=== PATIENT | female | born 1975 | race Caucasian/White ===

== ENCOUNTER 2023-03-10 10:37 | Outpatient (REF) | payer OTHER, SELFPAY ==
[2023-03-10 15:00] LABS: HCT 38.7 % (36.0-46.0); HGB 13.4 g/dL (11.2-15.7); MCHC 34.6 % (32.0-36.0); MCV 90 fL (80-95); MPV 10.6 fL (8.0-11.0); Platelet Count 243 10^3/uL (130-400); RBC 4.32 10^6/uL (3.93-5.22); RDW 12.2 % (11.7-14.6); RDW-SD 40.5 fL; WBC 4.62 10^3/uL (4.4-10.8)
[2023-03-10 15:24] LABS: TSH (W/Ref FT4) 3.09 uIU/mL (0.36-3.74)
[2023-03-10 16:03] LABS: Iron 153 ug/dL (50-170); Total Iron Binding Capacity 304 ug/dL (250-450); Transferrin Sat 50 % (15-50)
[2023-03-10 16:26] LABS: Vitamin D 25 Total 16.5 ng/mL (30-100)
[2023-03-11 10:27] LABS: FSH 11.1 mIU/mL (See Note)
== END 2023-03-10 10:38 | disposition home or self-care (01) ==
LOC: NCHCN 10:37
PROVIDERS: Visit Provider Family Medicine
DX: N92.0 Excessive and frequent menstruation with regular cycle (principal); L60.9 Nail disorder, unspecified; E55.9 Vitamin D deficiency, unspecified
CPT/HCPCS: 82306; 85027; 83001; 83540; 83550; 84443

== ENCOUNTER → 2023-03-17 01:57 | Outpatient (CLI) | payer OTHER, SELFPAY ==
--- NOTE | 2023-03-17 12:49 | DI.MAMMO_ITS ---
Exam(s) MAMMO SCREENING EXAM: MAMMO SCREENING CLINICAL HISTORY: SCREENING,Z12.31. TECHNIQUE: Bilateral full field digital CC and MLO mammographic images were obtained with 3D tomosyn thesis and utilizing computer aided detection (CAD). COMPARISON: 2019 through 2021 from [facility][1]. FINDINGS: Masses: No suspicious masses.. Area of nodularity again noted in the subareolar region of the left b reast. Architectural Distortion: None seen. Microcalcifications: No suspicious pleomorphic-type are seen. Skin Thickening/Nipple Retraction: None. IMPRESSION: 1. No significant interval change with no specific features of malignancy noted. 2. Unless there is more urgent need, annual screening mammography is recommended, as per [place] [employer] guidelines. BI-RADS Category 2 - Benign Findings Breast Density - Category D - extremely dense Breast Density Category D: The mammogram demonstrates the patient's breast tissue is dense. Dense yakelin ast tissue is very common and is not abnormal but dense breast tissue can make it harder to find canc er on a mammogram. Also, dense breast tissue may increase their breast cancer risk. This information about the result of the mammogram report was provided to the patient to raise their awareness. Use th is report when you speak with the patient about their risks for breast cancer, which includes their f amily history. At that time, you may recommend for more screening tests (Ultrasound or MRI) as they m ight be useful based on their risk. A negative radiographic report should not delay biopsy if a dominant or clinically suspicious mass is present. Up to ten percent of cancers are not identified on mammography. A negative report may reinforce clinical impression. Adenosis and dense breasts may obscure an underlying neoplasm. False positive reports average 6 to 10%.
== END ==
PROVIDERS: Visit Provider Family Medicine
DX: Z12.31 Encounter for screening mammogram for malignant neoplasm of breast (principal)
CPT/HCPCS: 77063; 77067

== ENCOUNTER 2023-07-24 06:57 | Day surgery (SDC) | payer OTHER, SELFPAY ==
[2023-07-24 07:13] VITALS: BP 117/76; PULSE 57; RESP 16; TEMP 36.8; O2SAT 96
[2023-07-24] MEDS: Lactated Ringers 1,000 ML 80 ML IV (07:31)
--- NOTE | 2023-07-24 07:32 | W.ANESPRE ---
General Info Date of Service Date Performed: 07/24/23 Height: 5 ft 10 in Weight: 75 kg Body Mass Index (BMI): 23.7 Surgical Procedure: Operation Date: 07/24/23 08:20 Proposed Procedure Side Surgeon koko Byrnes MD Meds Allergies and Home Medications Allergies Allergy/AdvReac Type Severity Reaction Status Date / Time No Known Allergies Allergy Verified 07/24/23 07:08 Home Medication Medication Instructions Recorded bisacodyl 5 mg tablet,delayed 5 mg PO ONCE #4 tabs 07/03/23 release (Dulcolax (bisacodyl)) cholecalciferol (vitamin D3) 250 250 mcg PO DAILY 07/03/23 mcg (10,000 unit) capsule polyethylene glycol 3350 17 17 g PO DAILY #238 grams 07/03/23 gram/dose oral powder Current Visit Medications: Current Medications Generic Name Dose Route Start Last Admin Trade Name Freq PRN Reason Stop Dose Admin Ringer's Solution 1,000 mls @ 80 mls/hr 07/24/23 06:00 07/24/23 07:31 IV 07/24/23 23:59 80 mls/hr INFUSION SUDHEER Administration IV Miscellaneous Supplies 1 each 07/24/23 06:00 Iv Access IV 07/24/23 23:59 DIRECTED SUDHEER Sodium Chloride 0 ml 07/24/23 06:00 Normal Saline Flush 10 Ml Syr IV 07/24/23 23:59 PRN PRN Sodium Chloride 0 ml 07/24/23 06:00 Normal Saline 10 Ml Vial IJ 07/24/23 23:59 DIRECTED PRN Sterile Water 0 ml 07/24/23 06:00 Water,Injection,Sterile 10 Ml Vial IJ 07/24/23 23:59 DIRECTED PRN PFSH Medical History Medical History Vitamin D deficiency Surgical History Surgical History Hx of wisdom tooth extraction Tobacco Smoking/Tobacco Use Status: Former Tobacco Use Alcohol Alcohol Intake: current Alcohol intake frequency: a few times a week Alcohol type: beer Substance Use Substance use: Never Substance use type: does not use Vital Signs and Lab Results Vital Signs Most Recent Vital Signs in EMR: Most Recent Vital Signs Temp Pulse Resp BP Pulse Ox 36.8 C 57 L 16 117/76 96 07/24/23 07:13 07/24/23 07:13 07/24/23 07:13 07/24/23 07:13 07/24/23 07:13 Point of Care Results Point of Care Results: POC- Test(urine) Negative 07/24/23 07:11 Lab Results Blood Type / Crossmatch: No Data to Display Complete Blood Count: No Data to Display Complete Metabolic Panel: No Data to Display Liver Function Panel: No Data to Display Coagulation Panel: No Data to Display Cardiac Panel: No Data to Display Arterial Blood Gas: No Data to Display Venous Blood Gas: No Data to Display Pancreas Panel: No Data to Display Thyroid Panel: No Data to Display Infectious Disease: No Data to Display Blood Cultures: No Data to Display Toxicology Panel: No Data to Display Panel: No Data to Display Anesthesia Assessment and Plan Anesthesia History Personal History: No History of General Anesthesia Family History: No Family History of Anesthesia Complications Exercise Tolerance Exercise Tolerance: Metabolic Equivalents>4 Pertinent Negatives Pertinent Negatives: No Symptoms of GERD, No Major Cardiovascular Symptoms or Complaints, No Major Pulmonary Symptoms or Complaints and No History of CVA/TIA Cardiac & Pulmonary Exam Cardiac Exam: Normal S1/S2 Heart Sounds Pulmonary Exam: Clear Bilateral Breath Sounds Implantable Cardiac Device Does patient have a Pacemaker or an ICD?: No Airway Exam Known Difficult Airway: No Mallampati Class: 2 Mouth Opening: Normal (> 3cm) Thyromental Distance: Greater than 3 cm Neck Range of Motion: Full ROM Neck Circumference: Normal Teeth Condition: Normal Dentition ASA Classification ASA Score: ASA 2 Emergency Case?: No NPO Status NPO Status: NPO Clears >2 hours, Solids >8 hours Status Status: Negative HCG Anesthesia Plan Resuscitation Status: Full Code Anesthesia Technique: General Anesthesia Airway Planned: Natural Airway Monitors Used: Standard Monitors Preoperative Comments:: Screening colonoscopy
--- NOTE | 2023-07-24 08:12 | W.COLOREPORT ---
Date of service: 07/24/23 Time of Service: 08:12 Colonoscopy Report Procedure Description: PROCEDURES PERFORMED: 1. Colonoscopy PREOPERATIVE DIAGNOSIS: Screening colonoscopy POSTOPERATIVE DIAGNOSIS: Normal colon, normal rectum SURGEON: Alo Byrnes MD INDICATION FOR PROCEDURE: The patient is a 47-year-old woman who has never had a colonoscopy. She is without any symptoms. She has no family history of colon cancer. FINDINGS: No polyps were found. No inflammation anywhere. No diverticular disease. No obvious hemorrhoid disease. SURVEILLANCE interval/FOLLOW-UP: 10 years SPECIMENS: None EBL: Minimal COMPLICATIONS: None QUALITY of prep: Excellent Procedure in detail: The patient gave written consent and was in agreement with the indications, the potential risks as well as the benefits of the procedure. They were taken to the endoscopy suite and laid in the left lateral decubitus position. A timeout was performed and anesthesia was administered which was tolerated well. I started the procedure. Digital rectal and visual examination was performed and grossly within normal limits. A well-lubricated flexible colonoscope was then introduced and passed without any notable difficulty all the way to the cecum identified by the ileocecal valve and the appendiceal orifice. The scope was then slowly withdrawn with the above-noted findings. The patient tolerated the procedure well and was taken to the PACU in hemodynamically stable condition.
--- NOTE | 2023-07-24 08:12 | W.PM.DSUDISC ---
Date of service: 07/24/23 Time of Service: 08:12 Discharge Plan Disposition Patient Disposition: Home Condition: Good Discharge Details Attending Provider: Shaggy Byrnes Primary Care Provider: Alexandria Shelton Home Meds and New Rx's Prescriptions: No Action cholecalciferol (vitamin D3) 250 mcg (10,000 unit) capsule 250 mcg PO DAILY bisacodyl [Dulcolax (bisacodyl)] 5 mg tablet,delayed release (DR/EC) 5 mg PO ONCE Qty: 4 0RF polyethylene glycol 3350 17 gram/dose powder 17 g PO DAILY Qty: 238 0RF Discharge Instructions Additional Instructions: FINDINGS: Your colon and rectum appear healthy and no polyps or inflammation was found. Repeat another colonoscopy in 10 years. Activity:: Activity as Tolerated Diet:: As Tolerated
[2023-07-24 08:25] VITALS: BMI 23.7
[2023-07-24 08:53] VITALS: BP 106/54; PULSE 53; RESP 16; TEMP 36.7; O2SAT 97
[2023-07-24 09:04] VITALS: BP 109/91; PULSE 63; RESP 16; TEMP 36.7; O2SAT 99
--- NOTE | 2023-07-24 09:39 | W.ANESPOSTOP ---
Postoperative Evaluation Date, Time and Location Date Performed: 07/24/23 Time Performed: 09:36 Patient Location: Day Surgery Unit Vital Signs Most Recent Imported Vital Signs: Most Recent Vital Signs Temp Pulse Resp BP Pulse Ox 36.7 C 63 16 109/91 H 99 07/24/23 09:04 07/24/23 09:04 07/24/23 09:04 07/24/23 09:04 07/24/23 09:04 Pain Score Most Recent Pain Score: Most Recent Pain Score Pain Level 0 07/24/23 09:04 Assessment Mental Status: Awake (Alert & Oriented to Patient Baseline) Airway and Respiratory Function: Patent airway with normal (patient baseline) respiratory exam Cardiovascular Function: Hemodynamically Stable Hydration Status: Adequately Hydrated Nausea & Vomiting: No Nausea or Vomiting Pain: Pt. Denies Any Pain Peripheral Nerve Block: Patient did not receive a nerve block
== END 2023-07-24 09:38 | disposition home or self-care (01) ==
PROVIDERS: PCP Family Medicine; Visit Provider Student in an Organized Health Care Education/Training Program
PROC: 0DJD8ZZ Inspection of Lower Intestinal Tract, Via Natural or Artificial Opening Endoscopic (ICD-10-PCS; CPT 45378; principal; 2023-07-24 08:15)
DX: Z12.11 Encounter for screening for malignant neoplasm of colon (principal)
CPT/HCPCS: 45378; 00123; 81025; J2704

== ENCOUNTER 2024-03-26 11:30 | Outpatient (REF) | payer BC, SELFPAY ==
--- NOTE | 2024-03-26 07:50 | PAPFT_PTH ---
PATIENT: Sweta Sterling [id number] AGE/SX: 48/F ROOM: RE03/26/[address]: Alexandria Shelton : 1975 BED: DIS: 03/26/2024 SPEC #: [id number] RECD: 03/26/24 17:55 STATUS: JAREK RELynn #: [id number] SOLOMON: 03/26/24 07:[address]: Alexandria Shelton [facility] Cytology RECD BY: Echo Kimball Tissues: 1 - CX/ENDOCX FOR PAP SMEARS Procedures: PAP THIN PREP/UVM Screening HPV DNA PROBE Comments: [id number] (HPV 16 & 18/45)
[2024-03-26 15:40] LABS: Anion Gap 7.7 mmol/L (3-11); BUN 14 mg/dL (7-18); CO2 28.3 mmol/L (21.0-32.0); CREATININE 0.9 mg/dL (0.55-1.02); Calcium 9.3 mg/dL (8.5-10.1); Calculated LDL 121 mg/dL (<100); Chloride 106 mmol/L (98-107); Cholesterol 203 mg/dL (<200); Estimated GFR 79.85 (mL/min/1.73m2); Glucose 92 mg/dL (74-106); HDL Cholesterol 62 mg/dL (40-60); Potassium 4.3 mmol/L (3.5-5.1); Sodium 142 mmol/L (136-145); Triglyceride 104 mg/dL (<150); Vitamin D 25 Total 16.9 ng/mL (30-100)
[2024-03-26 23:56] LABS: Hepatitis C Ab w Rflx HCV PCR Negative (Negative)
[2024-03-27 00:03] LABS: HIV-1/2 Ag & Ab Screen Negative (Negative)
== END 2024-03-26 11:31 | disposition home or self-care (01) ==
LOC: NCHCN 11:30
PROVIDERS: PCP Family Medicine; Visit Provider Family Medicine
DX: Z11.51 Encounter for screening for human papillomavirus (HPV) (principal); Z01.419 Encounter for gynecological examination (general) (routine) without abnormal findings; E55.9 Vitamin D deficiency, unspecified; Z13.220 Encounter for screening for lipoid disorders; Z13.1 Encounter for screening for diabetes mellitus; Z11.59 Encounter for screening for other viral diseases
CPT/HCPCS: 80048; 80061; 82306; 86803; 87389; 88142; 87624

== ENCOUNTER 2024-04-27 01:24 | Outpatient (CLI) | payer BC, SELFPAY ==
--- NOTE | 2024-04-27 07:55 | DI.MAMMO_ITS ---
Exam(s) MAMMO SCREENING EXAM: MAMMO SCREENING CLINICAL HISTORY: Screening, Z12.31 TECHNIQUE: Mammograms were interpreted according to the usual protocol including computer analysis w [employer] CAD system, tomosynthesis and C-view imaging. COMPARISON: 2021 -2023 FINDINGS: The breasts are composed of heterogeneously dense fibroglandular densities, Breast Density category C . No suspicious masses or suspicious microcalcifications are seen. No skin thickening or abnormal axillary lymph nodes are seen. There has been no significant change from prior exams. IMPRESSION: BI-RADS Category 1, Negative mammogram. Yearly screening mammography is recommended. Breast Density Category C, heterogeneously Dense. The mammogram demonstrates the patient's breast tissue is dense. Dense breast tissue is very common a nd is not abnormal but dense breast tissue can make it harder to find cancer on a mammogram. Also, de nse breast tissue may increase breast cancer risk. This information about the result of the mammogram report was provided to the patient to raise their awareness. Use this report when you speak with the patient about their risks for breast cancer, which includes their family history. At that time, you may recommend additional screening tests (Ultrasound or MRI) as they might be useful based on their r isk. A negative radiographic report should not delay biopsy if a dominant or clinically suspicious mass is present. Up to ten percent of cancers are not identified on mammography. A negative report may reinforce clinical impression. Adenosis and dense breasts may obscure an underlying neoplasm. False positive reports average 6 to 10%.
== END 2024-04-27 01:44 ==
LOC: DI 01:24
PROVIDERS: PCP Family Medicine; Visit Provider Family Medicine
DX: Z12.31 Encounter for screening mammogram for malignant neoplasm of breast (principal); R92.333 Mammographic heterogeneous density, bilateral breasts
CPT/HCPCS: 77063; 77067